=== PATIENT | female | born 1935 | race Caucasian/White ===

== ENCOUNTER 2021-02-27 17:23 | Inpatient (IN) ==
[2021-02-27] MEDS ORDERED: IOPAMIDOL 100 ML BOTTLE IV ONE (17:24)
--- NOTE | 2021-02-27 17:54 | XRay Report ---
HISTORY: Shortness of breath, cough pulmonary infiltrates and positive COVID test FINDINGS: There are ill-defined alveolar infiltrates in both lungs which have enlarged since 02/25/21. There is involvement in both upper lobes both lower lobes and around the left hilum. Lung volumes are normal. No pleural effusion is present. No adenopathy is detected. The heart size is normal and there is a pacemaker and right ventricle. IMPRESSION: Worsening bilateral pneumonia Interpreted and Authenticated by: David Iverson 02/27/21
--- NOTE | 2021-02-27 18:16 | EKG ---
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 Measurements Intervals [place] Rate: 70 P: MA: QRS: -63 QRSD: 130 T: 140 QT: 408 QTc: 441 Interpretive Statements Afib/flutter and ventricular-paced rhythm No further analysis attempted due to paced rhythm Since previous ECG of 02-25-2021, NSC Baseline wander in lead(s) V3 ABNORMAL ECG Electronically Signed On 02-27-2021 18:16:25 PDT by Cristian Bolton M.D. /[facility] [place]/M0/[id number]
[2021-02-27] MEDS ORDERED: ALBUTEROL SULFATE 200 PUFF INHALER INH ONE (18:25)
--- NOTE | 2021-02-27 18:30 | Emergency Department Note ---
Weakness HPI General Chief complaint: Weakness Stated complaint: SOB, cough, headache, weakness Time Seen by Provider: 02/27/21 17:28 Source: patient Mode of arrival: ambulatory Limitations: no limitations History of Present Illness HPI Narrative: Narrative: 85-year-old female with a reported history of emphysema, A. fib status post AICD on with known COVID-19 diagnosed on Thursday and symptoms since the end of January presenting to the ED with worsening symptoms overall since her diagnosis Thursday. At that time she was not hypoxic and was discharged home feeling a little bit better however since that time all of her symptoms have progressively worsened primarily just the generalized fatigue and weakness. Also has had no appetite and has had very little to eat or drink. Complains of shortness of breath, posttussive chest pain, subjective fevers, dry cough, watery diarrhea. Of note patient has been previously fully vaccinated with Moderna. No other complaints. Related Data Home Medications Medication Instructions Recorded Confirmed multivitamin 1 tab PO QAM 11/04/17 02/27/21 apixaban 5 mg tablet 5 mg PO BID 08/13/19 02/27/21 cholecalciferol (vitamin D3) 125 5,000 unit PO QDAY tab 08/13/19 02/27/21 mcg (5,000 unit) disintegrating tablet ferrous gluconate 300 mg (35 mg 300 mg PO QDAY 08/13/19 02/27/21 iron) tablet magnesium oxide 400 mg PO TID tab 08/13/19 02/27/21 acetaminophen 650 mg 1,300 mg PO BID tab 04/17/20 02/27/21 tablet,extended release ascorbate calcium (vitamin C) 500 500 mg PO QDAY tab 04/17/20 02/27/21 mg tablet lactobacillus combination no.8 3 3,000 mmu cells PO QDAY 04/17/20 01/24/21 billion cell capsule preservision PO BID 04/17/20 01/24/21 vitamin B complex 1 tab PO QDAY 04/17/20 02/28/21 zinc 50 mg tablet 50 mg PO .MWF tab 04/17/20 02/28/21 Previous Rx's Medication Instructions Recorded furosemide 20 mg tablet 20 mg PO QAM #90 tab 09/24/20 levothyroxine 137 mcg tablet 137 mcg PO QDAY #90 tab 09/24/20 metformin 500 mg tablet 500 mg PO QDAY #90 tab 09/24/20 metoprolol succinate 50 mg 50 mg PO QDAY #90 tab 09/24/20 tablet,extended release 24 hr potassium chloride 20 mEq See Rx Instructions .ROUTE 09/24/20 tablet,extended release .COMPLEX #90 tablet alprazolam 0.5 mg tablet 0.25 - 0.5 mg PO TID PRN #180 tab 11/26/20 omeprazole 40 mg capsule,delayed 40 mg PO QDAY #30 cap 01/10/21 release sucralfate 1 gram tablet 1 g PO QACHS #40 tab 01/10/21 albuterol sulfate 2 puff INHALATION Q6H PRN #8.5 g 02/25/21 codeine-guaifenesin [Coditussin AC] 5 ml PO Q6H PRN #473 ml 02/25/21 Allergies Allergy/AdvReac Type Severity Reaction Status Date / Time lansoprazole Allergy Unknown Unknown Verified 02/27/21 17:27 amiodarone AdvReac Intermediate vision Verified 02/27/21 17:27 changes, feet pain Review of Systems ROS ROS Narrative: Narrative: At least 10 systems reviewed and otherwise acutely negative except as in the HPI PFSH Narrative Patient History Narrative: Narrative: Medical/Surgical/Family History All Active Problems (Updated 02/28/21 @ 03:07 by Al Dong DO) Emphysema, unspecified (Chronic) Stress (Chronic) Crohns disease of small intestine (Chronic) Elevated blood sugar (Chronic) Unspecified cirrhosis of liver (Chronic) Hypomagnesemia (Chronic) Palpitations (Chronic) Hyperlipidemia (Chronic) Varicose veins of lower extremity (Chronic) Chest discomfort (Chronic) Flushing (Chronic) GERD (gastroesophageal reflux disease) (Chronic) Anemia (Chronic) Leukemia, lymphocytic, chronic (Chronic) Vitamin D deficiency (Chronic) Fatigue (Chronic) Rhinitis, allergic (Chronic) Insomnia (Chronic) Postmenopausal (Chronic) Hypertriglyceridemia (Chronic) Hypertension (Chronic) Wears glasses (Chronic) Hypothyroidism (Chronic) 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) Migraines (Chronic) Bronchiectasis (Chronic) Atrial fibrillation (Chronic) Atrial flutter (Chronic) Skin irritation (Chronic) Mixed hyperlipidemia (Chronic) Benign hypertensive heart disease (Chronic) Typical atrial flutter (Chronic) Anemia, iron deficiency (Chronic) Esophageal stricture (Chronic) DDD (degenerative disc disease), cervical (Chronic) Encounter for long-term (current) use of medications (Chronic) Occipital headache (Chronic) Family history of brain aneurysm (Chronic) Carotid bruit (Chronic) Anxiety (Chronic) Neck pain (Chronic) Headache (Chronic) COPD (chronic obstructive pulmonary disease) (Chronic) Back pain (Acute) Dyspnea (Acute) Other spondylosis with radiculopathy, lumbar region (Chronic) Chronic pain (Chronic) Radiculopathy, lumbar region (Chronic) Rosacea (Acute) Discoloration of skin of lower leg (Acute) Myofascial pain (Acute) Depression (Acute) COVID (Acute) Pneumonia (Acute) COVID-19 (Acute) Diarrhea (Acute) Medical History Anemia Anemia, iron deficiency Anxiety Benign hypertensive heart disease Bronchiectasis Carotid bruit Chest discomfort Chronic pain COPD (chronic obstructive pulmonary disease) Crohns disease of small intestine DDD (degenerative disc disease), cervical Degenerative joint disease involving multiple joints Depression Elevated blood sugar Emphysema, unspecified Encounter for long-term (current) use of medications Esophageal stricture Family history of brain aneurysm Fatigue Flushing GERD (gastroesophageal reflux disease) Headache Hyperlipidemia Hypertension Hypertriglyceridemia Hypomagnesemia Hypothyroidism Insomnia Leukemia, lymphocytic, chronic Migraines Mixed hyperlipidemia Neck pain Occipital headache Other spondylosis with radiculopathy, lumbar region Palpitations Postmenopausal Radiculopathy, lumbar region Rhinitis, allergic Skin irritation Stress Typical atrial flutter Unspecified cirrhosis of liver Varicose veins of lower extremity Vitamin D deficiency Wears glasses Surgical History History of appendectomy History of cholecystectomy History of colonoscopy (~2012) History of eye surgery (~05/2018) Dr Wong History of permanent cardiac pacemaker placement (~01/13/20) History of prior ablation treatment (~01/13/20) History of right knee surgery (~12/2008) History of sinus surgery (~2009) History of surgery TFE #1 Lt L4-5 w/sed 05/14/20 TF PATRICK #2 Lt. L4-5 w/sed 08/09/1907/12 TF PATRICK #1 Lt. L4-5 w/sed 07/19/2019 History of tonsillectomy History of total hysterectomy Hx of inguinal hernia surgery Dr Atkinson Family History Sister History of heart surgery Father , of cerebral hemmorrhage Cerebral hemorrhage Diabetes Mother HTN (hypertension) Social History Smoking Status: Former smoker Alcohol Intake Frequency: does not drink Substance Use: does not use Exam Narrative Narrative: Narrative: Constitutional: normally developed, ill-appearing Head: Normocephalic, atraumatic, Eyes: No Icterus, ENT: Moist mucus membranes, Neck: Supple, Cardiac: Normal heart sounds, palpable radial pulses, no peripheral edema Pulmonary: Normal respiratory effort. Breath sounds coarse but no obvious focal, wheeze, rhonchi, rales, Gastrointestinal: Abdomen soft, non-distended, non-tender, Musculoskeletal: No gross deformities, well perfused Skin: warm, dry Neuro: Alert and oriented. General Limitations: no limitations Course Vital Signs Vital signs: Vital Signs Pulse Rate 73 02/27/21 17:24 Respiratory Rate 22 02/27/21 17:24 Blood Pressure 141/62 02/27/21 17:24 Pulse Oximetry (%) 87 L 02/27/21 17:24 Temperature 36.7 C 02/27/21 22:11 Pulse Rate 80 02/27/21 23:31 Respiratory Rate 20 02/27/21 22:11 Blood Pressure 134/81 02/27/21 22:11 Pulse Oximetry (%) 93 02/27/21 22:37 [facility] MDM Narrative Medical decision making narrative: Narrative: Patient with known COVID-19 with overall worsening symptoms consistent with a overall worsening viral syndrome. Of note today however she is hypoxic on room air 87% with normal saturations on 2 L nasal cannula currently not in any respiratory distress. Likely will qualify for Decadron possibly remdesivir, we are awaiting diagnostic studies. did give her albuterol MDI. Patient is started on 6 mg IV Decadron Labs show unremarkable CBC, electrolytes unremarkable other than tracely elevated glucose D-dimer elevated 1.3 CT PE pending Troponin is negative CT PE is negative for PE does show findings consistent with COVID-19 infection no obvious focal bacterial pneumonia, also does show emphysema Twelve-lead EKG at 1747 per my interpretation shows atrial flutter appearance with a underlying ventricularly paced complexes heart rate 70 QTc within normal no acute ischemia noted Reevaluation presentation consistent with worsening COVID-19 now oxygen dependent, was started on dexamethasone, have spoken with hospitalist Dr. chairez who accepts admission at this time Lab Data Result diagrams: 02/27/21 17:54 02/27/21 17:54 Labs: Lab Results 02/27/21 02/27/21 02/27/21 Range/Units 17:54 17:54 17:54 WBC 7.3 (4.5-11.0) K/mcL RBC 4.50 (4.00-5.20) M/mcL Hgb 12.5 (12.0-15.0) g/dL Hct 39.5 (36.0-48.0) % MCV 87.8 (80.0-100.0) fL MCH 27.8 (26.0-34.0) pg MCHC 31.6 (31.0-36.0) g/dL RDW 14.4 (11.5-14.5) % Plt Count 155 (140-440) K/mcL MPV 9.7 (7.4-10.4) fL Neut % (Auto) 39.6 (38.0-78.0) % Lymph % (Auto) 53.8 H (15.0-49.0) % [place] % (Auto) 5.4 (1.0-12.0) % Eos % (Auto) 1.1 (0.0-7.0) % Baso % (Auto) 0.1 (0.0-2.0) % Lymph # (Auto) 3.90 (1.50-4.80) K/mcL [place] # (Auto) 0.39 (0.10-0.90) K/mcL Eos # (Auto) 0.08 (0.00-0.70) K/mcL Baso # (Auto) 0.01 (0.00-0.20) K/mcL Absolute Neutrophils 2.87 (1.80-8.00) K/mcL PT (11.9-14.5) sec INR (0.9-1.1) D-Dimer 1.30 H (0.27-0.50) ug/mL Sodium 135 (133-145) mmol/L Potassium 4.4 (3.3-5.1) mmol/L Chloride 99 (96-108) mmol/L Carbon Dioxide 23 (22-30) mmol/L Anion Gap 13.0 (8.0-16.0) BUN 20 (8-23) mg/dL Creatinine 0.9 (0.6-1.1) mg/dL GFR Calculation 59 Glucose 117 H (70-105) mg/dL Hemoglobin A1c (4.0-6.0) % Hgb Estim Average Glucose mg/dL Calcium 8.7 (8.6-10.4) mg/dL Ferritin (30.0-400.0) ng/mL Total Bilirubin 0.7 (0.1-1.0) mg/dL AST 42 H (<32) U/L ALT 21 (<40) U/L Alkaline Phosphatase 76 (39-117) U/L Total Creatine Kinase (24-170) U/L Troponin T (<0.03) ng/mL C-Reactive Protein (0.03-0.80) mg/dL Total Protein 6.3 (5.9-8.4) gm/dL Albumin 4.0 (3.2-5.2) gm/dL Globulin 2.3 (2.2-3.7) gm/dL Albumin/Globulin Ratio 1.7 (1.0-2.3) Procalcitonin (<0.10) ng/mL 02/27/21 02/27/21 02/27/21 Range/Units 17:54 17:54 17:54 WBC (4.5-11.0) K/mcL RBC (4.00-5.20) M/mcL Hgb (12.0-15.0) g/dL Hct (36.0-48.0) % MCV (80.0-100.0) fL MCH (26.0-34.0) pg MCHC (31.0-36.0) g/dL RDW (11.5-14.5) % Plt Count (140-440) K/mcL MPV (7.4-10.4) fL Neut % (Auto) (38.0-78.0) % Lymph % (Auto) (15.0-49.0) % [place] % (Auto) (1.0-12.0) % Eos % (Auto) (0.0-7.0) % Baso % (Auto) (0.0-2.0) % Lymph # (Auto) (1.50-4.80) K/mcL [place] # (Auto) (0.10-0.90) K/mcL Eos # (Auto) (0.00-0.70) K/mcL Baso # (Auto) (0.00-0.20) K/mcL Absolute Neutrophils (1.80-8.00) K/mcL PT 14.6 H (11.9-14.5) sec INR 1.1 (0.9-1.1) D-Dimer (0.27-0.50) ug/mL Sodium (133-145) mmol/L Potassium (3.3-5.1) mmol/L Chloride (96-108) mmol/L Carbon Dioxide (22-30) mmol/L Anion Gap (8.0-16.0) BUN (8-23) mg/dL Creatinine (0.6-1.1) mg/dL GFR Calculation Glucose (70-105) mg/dL Hemoglobin A1c (4.0-6.0) % Hgb Estim Average Glucose mg/dL Calcium (8.6-10.4) mg/dL Ferritin 289.1 (30.0-400.0) ng/mL Total Bilirubin (0.1-1.0) mg/dL AST (<32) U/L ALT (<40) U/L Alkaline Phosphatase (39-117) U/L Total Creatine Kinase 56 (24-170) U/L Troponin T < 0.01 (<0.03) ng/mL C-Reactive Protein 4.20 H (0.03-0.80) mg/dL Total Protein (5.9-8.4) gm/dL Albumin (3.2-5.2) gm/dL Globulin (2.2-3.7) gm/dL Albumin/Globulin Ratio (1.0-2.3) Procalcitonin (<0.10) ng/mL 02/27/21 02/27/21 Range/Units 17:54 17:54 WBC (4.5-11.0) K/mcL RBC (4.00-5.20) M/mcL Hgb (12.0-15.0) g/dL Hct (36.0-48.0) % MCV (80.0-100.0) fL MCH (26.0-34.0) pg MCHC (31.0-36.0) g/dL RDW (11.5-14.5) % Plt Count (140-440) K/mcL MPV (7.4-10.4) fL Neut % (Auto) (38.0-78.0) % Lymph % (Auto) (15.0-49.0) % [place] % (Auto) (1.0-12.0) % Eos % (Auto) (0.0-7.0) % Baso % (Auto) (0.0-2.0) % Lymph # (Auto) (1.50-4.80) K/mcL [place] # (Auto) (0.10-0.90) K/mcL Eos # (Auto) (0.00-0.70) K/mcL Baso # (Auto) (0.00-0.20) K/mcL Absolute Neutrophils (1.80-8.00) K/mcL PT (11.9-14.5) sec INR (0.9-1.1) D-Dimer (0.27-0.50) ug/mL Sodium (133-145) mmol/L Potassium (3.3-5.1) mmol/L Chloride (96-108) mmol/L Carbon Dioxide (22-30) mmol/L Anion Gap (8.0-16.0) BUN (8-23) mg/dL Creatinine (0.6-1.1) mg/dL GFR Calculation Glucose (70-105) mg/dL Hemoglobin A1c 6.2 H (4.0-6.0) % Hgb Estim Average Glucose 131 mg/dL Calcium (8.6-10.4) mg/dL Ferritin (30.0-400.0) ng/mL Total Bilirubin (0.1-1.0) mg/dL AST (<32) U/L ALT (<40) U/L Alkaline Phosphatase (39-117) U/L Total Creatine Kinase (24-170) U/L Troponin T (<0.03) ng/mL C-Reactive Protein (0.03-0.80) mg/dL Total Protein (5.9-8.4) gm/dL Albumin (3.2-5.2) gm/dL Globulin (2.2-3.7) gm/dL Albumin/Globulin Ratio (1.0-2.3) Procalcitonin 0.10 H (<0.10) ng/mL Discharge Plan Patient/Caregiver Discharge Instructions Pt seen by COMPRESSOR OPERATOR/PA only: No Clinical Impression: COVID-19 Emphysema, unspecified Qualifiers: Emphysema type: centrilobular Qualified Code(s): J43.2 - Centrilobular emphysema Patient Disposition: Xfer As Inpt ([facility]) Condition: Fair Discharge Date/Time: 02/27/21 22:10
[2021-02-27 18:36] LABS: Basophils # (Auto) 0.01 K/mcL (0.00-0.20); Basophils % (Auto) 0.1 % (0.0-2.0); Eosinophils # (Auto) 0.08 K/mcL (0.00-0.70); Eosinophils % (Auto) 1.1 % (0.0-7.0); Hematocrit 39.5 % (36.0-48.0); Hemoglobin 12.5 g/dL (12.0-15.0); Lymphocytes % (Auto) 53.8 % (15.0-49.0); Mean Cell Volume 87.8 fL (80.0-100.0); Mean Corpuscular HGB Conc 31.6 g/dL (31.0-36.0); Mean Platelet Volume 9.7 fL (7.4-10.4); Monocytes # (Auto) 0.39 K/mcL (0.10-0.90); Monocytes % (Auto) 5.4 % (1.0-12.0); Neutrophils % (Auto) 39.6 % (38.0-78.0); Platelet Count 155 K/mcL (140-440); Red Cell Distribution Width 14.4 % (11.5-14.5); WBC 7.3 K/mcL (4.5-11.0)
[2021-02-27 19:00] LABS: ALT/SGPT 21 U/L (<40); AST/SGOT 42 U/L (<32); Albumin/Globulin Ratio 1.7 (1.0-2.3); Alkaline Phosphatase 76 U/L (39-117); Bilirubin,Total 0.7 mg/dL (0.1-1.0); Blood Urea Nitrogen 20 mg/dL (8-23); Calcium 8.7 mg/dL (8.6-10.4); Carbon Dioxide 23 mmol/L (22-30); Chloride 99 mmol/L (96-108); Globulin 2.3 gm/dL (2.2-3.7); Glomerular Filtration Rate 59; Glucose 117 mg/dL (70-105)
[2021-02-27] MEDS ORDERED: DEXAMETHASONE 10 MG/ML VIAL IV ONE (19:37)
--- NOTE | 2021-02-27 21:05 | Internal Med History&Physical ---
HPI History of Present Illness Patient information: Note initiated : 02/27/21 at 8:58 pm Service Date, if different from initiated Date: [] Patient: Vianca Lancaster a 85 y/o F admitted on for SOB, cough, headache, weakness. Chief Complaint: [] History of present illness: Ms. Lancaster is a 85 year old F The ED with shortness of breath cough. Has chills but denies fever. She says she has not been feeling ill since the very end of January. She came into the ED several days ago and was diagnosed with Covid but was otherwise doing well and was let go home, she says she felt better the next morning but then the evening she started feeling worse again and presents again today. Cough is productive of brown sputum. She does have some pleuritic chest pain as well. She has diarrhea which she has on occasion normally. She did get the modern vaccine in October. Review of Systems: Pertinent positives as above. Denies headache/fever/nausea/vomiting/abdominal pain/. Remaining 10 point review of system reviewed negative. PFSH PFSH All Active Problems (Updated 02/25/21 @ 12:56 by Edmundo Orosco MD) Emphysema, unspecified (Chronic) Stress (Chronic) Crohns disease of small intestine (Chronic) Elevated blood sugar (Chronic) Unspecified cirrhosis of liver (Chronic) Hypomagnesemia (Chronic) Palpitations (Chronic) Hyperlipidemia (Chronic) Varicose veins of lower extremity (Chronic) Chest discomfort (Chronic) Flushing (Chronic) GERD (gastroesophageal reflux disease) (Chronic) Anemia (Chronic) Leukemia, lymphocytic, chronic (Chronic) Vitamin D deficiency (Chronic) Fatigue (Chronic) Rhinitis, allergic (Chronic) Insomnia (Chronic) Postmenopausal (Chronic) Hypertriglyceridemia (Chronic) Hypertension (Chronic) Wears glasses (Chronic) Hypothyroidism (Chronic) 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) Migraines (Chronic) Bronchiectasis (Chronic) Atrial fibrillation (Chronic) Atrial flutter (Chronic) Skin irritation (Chronic) Mixed hyperlipidemia (Chronic) Benign hypertensive heart disease (Chronic) Typical atrial flutter (Chronic) Anemia, iron deficiency (Chronic) Esophageal stricture (Chronic) DDD (degenerative disc disease), cervical (Chronic) Encounter for long-term (current) use of medications (Chronic) Occipital headache (Chronic) Family history of brain aneurysm (Chronic) Carotid bruit (Chronic) Anxiety (Chronic) Neck pain (Chronic) Headache (Chronic) COPD (chronic obstructive pulmonary disease) (Chronic) Back pain (Acute) Dyspnea (Acute) Other spondylosis with radiculopathy, lumbar region (Chronic) Chronic pain (Chronic) Radiculopathy, lumbar region (Chronic) Rosacea (Acute) Discoloration of skin of lower leg (Acute) Myofascial pain (Acute) Depression (Acute) COVID (Acute) Pneumonia (Acute) Diarrhea (Acute) Medical History Anemia Anemia, iron deficiency Anxiety Benign hypertensive heart disease Bronchiectasis Carotid bruit Chest discomfort Chronic pain COPD (chronic obstructive pulmonary disease) Crohns disease of small intestine DDD (degenerative disc disease), cervical Degenerative joint disease involving multiple joints Depression Elevated blood sugar Emphysema, unspecified Encounter for long-term (current) use of medications Esophageal stricture Family history of brain aneurysm Fatigue Flushing GERD (gastroesophageal reflux disease) Headache Hyperlipidemia Hypertension Hypertriglyceridemia Hypomagnesemia Hypothyroidism Insomnia Leukemia, lymphocytic, chronic Migraines Mixed hyperlipidemia Neck pain Occipital headache Other spondylosis with radiculopathy, lumbar region Palpitations Postmenopausal Radiculopathy, lumbar region Rhinitis, allergic Skin irritation Stress Typical atrial flutter Unspecified cirrhosis of liver Varicose veins of lower extremity Vitamin D deficiency Wears glasses Surgical History History of appendectomy History of cholecystectomy History of colonoscopy (~2012) History of eye surgery (~05/2018) Dr Wong History of permanent cardiac pacemaker placement (~01/13/20) History of prior ablation treatment (~01/13/20) History of right knee surgery (~12/2008) History of sinus surgery (~2009) History of surgery TFE #1 Lt L4-5 w/sed 05/14/20 TF PATRICK #2 Lt. L4-5 w/sed 08/09/1907/12 TF PATRICK #1 Lt. 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 other: Has grown children physical activity: none alcohol intake frequency: does not drink substance use type: does not use seatbelt use: always MEDS/ALLERGIES Home Medications and Allergies Home Medications Medication Instructions Recorded Confirmed Type multivitamin 1 tab PO QAM 11/04/17 02/27/21 History apixaban 5 mg tablet 5 mg PO BID 08/13/19 02/27/21 History cholecalciferol (vitamin D3) 125 5,000 unit PO QDAY tab 08/13/19 02/27/21 History mcg (5,000 unit) disintegrating tablet ferrous gluconate 300 mg (35 mg 300 mg PO QDAY 08/13/19 02/27/21 History iron) tablet magnesium oxide 400 mg PO TID tab 08/13/19 02/27/21 History acetaminophen 650 mg 1,300 mg PO BID tab 04/17/20 02/27/21 History tablet,extended release ascorbate calcium (vitamin C) 500 500 mg PO QDAY tab 04/17/20 02/27/21 History mg tablet lactobacillus combination no.8 3 3,000 mmu cells PO QDAY 04/17/20 01/24/21 History billion cell capsule preservision PO BID 04/17/20 01/24/21 History vitamin B complex 1 tab PO QDAY 04/17/20 02/27/21 History zinc 50 mg tablet 50 mg PO .MWF tab 04/17/20 02/27/21 History furosemide 20 mg tablet 20 mg PO QAM #90 tab 09/24/20 02/27/21 Rx levothyroxine 137 mcg tablet 137 mcg PO QDAY #90 tab 09/24/20 02/27/21 Rx metformin 500 mg tablet 500 mg PO QDAY #90 tab 09/24/20 02/27/21 Rx metoprolol succinate 50 mg 50 mg PO QDAY #90 tab 09/24/20 02/27/21 Rx tablet,extended release 24 hr potassium chloride 20 mEq See Rx Instructions .ROUTE 09/24/20 02/27/21 Rx tablet,extended release .COMPLEX #90 tablet alprazolam 0.5 mg tablet 0.25 - 0.5 mg PO TID PRN #180 tab 11/26/20 02/27/21 Rx omeprazole 40 mg capsule,delayed 40 mg PO QDAY #30 cap 01/10/21 02/27/21 Rx release sucralfate 1 gram tablet 1 g PO QACHS #40 tab 01/10/21 01/24/21 Rx albuterol sulfate 2 puff INHALATION Q6H PRN #8.5 g 02/25/21 02/27/21 Rx codeine-guaifenesin [Coditussin AC] 5 ml PO Q6H PRN #473 ml 02/25/21 02/27/21 Rx Allergies Allergy/AdvReac Type Severity Reaction Status Date / Time lansoprazole Allergy Unknown Unknown Verified 02/27/21 17:27 amiodarone AdvReac Intermediate vision Verified 02/27/21 17:27 changes, feet pain EXAM Constitutional Vitals: Temp Pulse Resp BP Pulse Ox 99 F 70 18 123/66 96 02/27/21 19:26 02/27/21 18:31 02/27/21 18:31 02/27/21 18:31 02/27/21 18:31 Exam: General: Alert, Awake, No acute Distress Eyes/N/T: EOMI, PERRL, Head/Neck: neck supple, normocephalic atraumatic CV: RRR paced, No murmurs, normal s1/s2 Pulm: Mild rhonchi b/l, no wheezing Abd: soft, nontender, +BS x4 Ext: no clubbing/cyanosis/edema Neuro: Alert, no focal deficits, moves all extremities, CN 2-12 grossly intact, symmetrical strength b/l upper/lower, sensations intact b/l upper/lower Skin: warm/dry DATA Data Completed and Pending Labs: Labs from last 24 hours 02/27/21 02/27/21 02/27/21 17:54 17:54 17:54 WBC RBC Hgb Hct MCV MCH MCHC RDW Plt Count MPV Neut % (Auto) Lymph % (Auto) Davie % (Auto) Eos % (Auto) Baso % (Auto) Lymph # (Auto) Davie # (Auto) Eos # (Auto) Baso # (Auto) Absolute Neutrophils PT Pending INR Pending D-Dimer Sodium Potassium Chloride Carbon Dioxide Anion Gap BUN Creatinine GFR Calculation Glucose Calcium Ferritin Pending Total Bilirubin AST ALT Alkaline Phosphatase Total Creatine Kinase Pending Troponin T C-Reactive Protein Pending Total Protein Albumin Globulin Albumin/Globulin Ratio Procalcitonin Pending 02/27/21 02/27/21 02/27/21 17:54 17:54 17:54 WBC RBC Hgb Hct MCV MCH MCHC RDW Plt Count MPV Neut % (Auto) Lymph % (Auto) Davie % (Auto) Eos % (Auto) Baso % (Auto) Lymph # (Auto) Davie # (Auto) Eos # (Auto) Baso # (Auto) Absolute Neutrophils PT INR D-Dimer 1.30 H Sodium 135 Potassium 4.4 Chloride 99 Carbon Dioxide 23 Anion Gap 13.0 BUN 20 Creatinine 0.9 GFR Calculation 59 Glucose 117 H Calcium 8.7 Ferritin Total Bilirubin 0.7 AST 42 H ALT 21 Alkaline Phosphatase 76 Total Creatine Kinase Troponin T < 0.01 C-Reactive Protein Total Protein 6.3 Albumin 4.0 Globulin 2.3 Albumin/Globulin Ratio 1.7 Procalcitonin 02/27/21 17:54 WBC 7.3 RBC 4.50 Hgb 12.5 Hct 39.5 MCV 87.8 MCH 27.8 MCHC 31.6 RDW 14.4 Plt Count 155 MPV 9.7 Neut % (Auto) 39.6 Lymph % (Auto) 53.8 H Davie % (Auto) 5.4 Eos % (Auto) 1.1 Baso % (Auto) 0.1 Lymph # (Auto) 3.90 Davie # (Auto) 0.39 Eos # (Auto) 0.08 Baso # (Auto) 0.01 Absolute Neutrophils 2.87 PT INR D-Dimer Sodium Potassium Chloride Carbon Dioxide Anion Gap BUN Creatinine GFR Calculation Glucose Calcium Ferritin Total Bilirubin AST ALT Alkaline Phosphatase Total Creatine Kinase Troponin T C-Reactive Protein Total Protein Albumin Globulin Albumin/Globulin Ratio Procalcitonin A/P Narrative A/P Narrative: A: *Covid PNA: *Acute hypoxic respiratory failure: *COPD(not on home O2): *Afib/flutter: On Eliquis/BB *HTN/HLD: *Hypothyroidism: *Depression/anxiety: *GERD: *?DM: * P: -Rem/Dexa -IS/Acapella, prn nebs -Prone positioning -check pct -check laboratory markers - -ppx: Home Eliquis/home PPI Full code Time Spent With Patient Time: Total time spent is greater than 50% in coordination of care (as documented) at patient's floor/unit and/or counseling patient:
[2021-02-27 21:15] LABS: Creatine Kinase 56 U/L (24-170)
[2021-02-27 21:17] LABS: INR 1.1 (0.9-1.1); Prothrombin Time 14.6 sec (11.9-14.5)
[2021-02-27 21:28] LABS: Ferritin 289.1 ng/mL (30.0-400.0)
[2021-02-27] MEDS ORDERED: POTASSIUM CHLORIDE 20 MEQ TABLET PO PRN ×2 (22:02)
[2021-02-27] MEDS ORDERED: METOPROLOL TARTRATE 5 MG/5 ML VIAL IV PRN (22:02)
[2021-02-27] MEDS ORDERED: SENNOSIDES 1 TABLET PO PRN (22:02)
[2021-02-27] MEDS ORDERED: METOCLOPRAMIDE 10 MG/2 ML VIAL IV PRN (22:02)
[2021-02-27] MEDS ORDERED: IPRATROPIUM/ALBUTEROL 3 ML AMPUL.NEB NEB PRN (22:02)
[2021-02-27] MEDS ORDERED: REMDESIVIR 100 MG in 0.9 % SODIUM CHLORIDE 250 ML IV SCH (22:02)
[2021-02-27] MEDS ORDERED: ONDANSETRON 4 MG/2 ML VIAL IV PRN (22:02)
[2021-02-27] MEDS ORDERED: MAGNESIUM SULFATE 2 GM/50 ML BAG IV PRN (22:02)
[2021-02-27] MEDS ORDERED: POLYETHYLENE GLYCOL 3350 17 GM PACKET PO PRN (22:02)
[2021-02-27] MEDS ORDERED: REMDESIVIR 200 MG in 0.9 % SODIUM CHLORIDE 250 ML IV ONE (22:02)
[2021-02-27] MEDS ORDERED: POTASSIUM CHLORIDE 40 MEQ in DEXTROSE 5% IN WATER 500 ML IV PRN (22:02)
[2021-02-27] MEDS ORDERED: ACETAMINOPHEN 325 MG TABLET PO PRN (22:02)
[2021-02-27] MEDS ORDERED: APIXABAN 5 MG TABLET PO ONE (22:33)
[2021-02-27] MEDS: APIXABAN 5 MG TABLET PO SCH (22:39)
[2021-02-27] MEDS: 0.9 % SODIUM CHLORIDE 10 ML SYRINGE IV SCH (22:39)
[2021-02-28] LABS: Hemoglobin A1C 6.2 % Hgb (4.0-6.0)
[2021-02-28] MEDS ORDERED: guaiFENesin/CODEINE 10 ML UDC PO PRN (06:00)
[2021-02-28 06:34] LABS: Basophils # (Auto) 0.01 K/mcL (0.00-0.20); Basophils % (Auto) 0.2 % (0.0-2.0); Eosinophils # (Auto) 0.01 K/mcL (0.00-0.70); Eosinophils % (Auto) 0.2 % (0.0-7.0); Hematocrit 38.7 % (36.0-48.0); Hemoglobin 11.9 g/dL (12.0-15.0); Lymphocytes # (Auto) 4.32 K/mcL (1.50-4.80); Mean Cell Volume 89.2 fL (80.0-100.0); Mean Corpuscular HGB Conc 30.7 g/dL (31.0-36.0); Mean Platelet Volume 9.8 fL (7.4-10.4); Monocytes # (Auto) 0.22 K/mcL (0.10-0.90); Monocytes % (Auto) 3.7 % (1.0-12.0); Neutrophils % (Auto) 23.5 % (38.0-78.0); Platelet Count 142 K/mcL (140-440); RBC 4.34 M/mcL (4.00-5.20); Red Cell Distribution Width 14.1 % (11.5-14.5)
[2021-02-28 07:03] LABS: ALT/SGPT 19 U/L (<40); AST/SGOT 35 U/L (<32); Albumin 3.7 gm/dL (3.2-5.2); Albumin/Globulin Ratio 1.8 (1.0-2.3); Alkaline Phosphatase 69 U/L (39-117); Bilirubin,Direct 0.2 mg/dL (<0.3); Bilirubin,Total 0.5 mg/dL (0.1-1.0); Blood Urea Nitrogen 16 mg/dL (8-23); Calcium 8.6 mg/dL (8.6-10.4); Carbon Dioxide 22 mmol/L (22-30); Chloride 100 mmol/L (96-108); Globulin 2.1 gm/dL (2.2-3.7); Glomerular Filtration Rate 59; Glucose 165 mg/dL (70-105); Lactate Dehydrogenase 234 U/L (135-225); Phosphorous 2.8 mg/dL (2.5-4.5); Triglycerides 243 mg/dL (<150); Uric Acid 5.5 mg/dL (2.5-8.0)
--- NOTE | 2021-02-28 07:15 | Internal Med Progress Note ---
SUBJECTIVE Subjective Patient information: Note initiated : 02/28/21 at 7:12 am Service Date, if different from initiated Date: [] Patient: Vianca Lancaster a 85 y/o F admitted on 02/27/21 for SOB, cough, headache, weakness. Chief Complaint: [] Interval history: History of present illness: Ms. Lancaster is a 85 year old F The ED with shortness of breath cough. Has chills but denies fever. She says she has not been feeling ill since the very end of January. She came into the ED several days ago and was diagnosed with Covid but was otherwise doing well and was let go home, she says she felt better the next morning but then the evening she started feeling worse again and presents again today. Cough is productive of brown sputum. She does have some pleuritic chest pain as well. She has diarrhea which she has on occasion normally. She did get the modern vaccine in October. 02/28 Feeling little better. Occasional cough shortness of breath improving. No other complaints. Review of Systems: denies headache/fever/chills/nausea/vomiting/chest or abdominal pain/diarrhea. Otherwise see above. Constitutional Vitals: Vital Signs Temp Pulse Resp BP Pulse Ox 97.2 F 71 20 110/66 91 02/28/21 04:18 02/28/21 04:18 02/28/21 04:18 02/28/21 04:18 02/28/21 04:18 Period Temp Pulse Resp BP Sys/Garcia Pulse Ox Last 24 Hr 97.2 F-99.2 F 24-80 18-22 110-141/62-81 87-96 Intake and Output 02/27/21 02/28/21 02/28/21 21:59 05:59 13:59 Intake Total 590 Output Total 1 Balance 589 Weight 72.121 kg 71.849 kg Intake & Output: Intake & Output 02/27/21 02/28/21 02/28/21 21:59 05:59 13:59 Intake Total 590 Output Total 1 Balance 589 Weight 72.121 kg 71.849 kg Intake: IV 250 Veklury 200 mg In Sodium 250 Chloride 0.9% 250 ml @ 500 mls/ hr IV ONCE ONE Rx#:[id number] Oral 340 Output: # of times incontinent of urine 1 Other: # Voids 1 Exam: General: Alert, Awake, No acute Distress Eyes/N/T: EOMI, Head/Neck: neck supple, CV: RRR paced, No murmurs, Pulm: Mild rhonchi b/l, no wheezing Abd: soft, nontender, +BS x4 Ext: no clubbing/cyanosis/edema Neuro: Alert, no focal deficits, moves all extremities, Skin: warm/dry OBJ DATA Labs CBC & Chem 7: 02/28/21 05:45 02/28/21 05:45 Labs: Abnormal Lab Results 02/28/21 02/28/21 02/27/21 05:45 05:45 17:54 Hgb 11.9 L MCHC 30.7 L Neut % (Auto) 23.5 L Lymph % (Auto) 72.4 H Absolute Neutrophils 1.41 L PT D-Dimer Glucose 165 H Hemoglobin A1c 6.2 H AST 35 H Lactate Dehydrogenase 234 H C-Reactive Protein Total Protein 5.8 L Globulin 2.1 L Triglycerides 243 H Procalcitonin 02/27/21 02/27/21 02/27/21 17:54 17:54 17:54 Hgb MCHC Neut % (Auto) Lymph % (Auto) Absolute Neutrophils PT 14.6 H D-Dimer Glucose Hemoglobin A1c AST Lactate Dehydrogenase C-Reactive Protein 4.20 H Total Protein Globulin Triglycerides Procalcitonin 0.10 H 02/27/21 02/27/21 02/27/21 17:54 17:54 17:54 Hgb MCHC Neut % (Auto) Lymph % (Auto) 53.8 H Absolute Neutrophils PT D-Dimer 1.30 H Glucose 117 H Hemoglobin A1c AST 42 H Lactate Dehydrogenase C-Reactive Protein Total Protein Globulin Triglycerides Procalcitonin Meds: Medications Acetaminophen (Acetaminophen 325 Mg Tablet) 650 mg PO Q6HP PRN PRN Reason: PAIN/FEVER > 101 Albuterol/Ipratropium (Ipratropium/Albuterol 3 Ml Ampul.Neb) 3 ml NEB Q4HP PRN PRN Reason: Shortness Of Breath Alprazolam (Alprazolam 0.5 Mg Tablet) 0.25 - 0.5 mg PO TIDP PRN PRN Reason: anxiety Apixaban (Apixaban 5 Mg Tablet) 5 mg PO BID ASIF Last Admin: 02/27/21 22:39 Dose: 5 mg Documented by: Dexamethasone (Dexamethasone 4 Mg Tablet) 6 mg PO DAILY [facility] Furosemide (Furosemide 20 Mg Tablet) 20 mg PO QAM [facility] Guaifenesin/Codeine Phosphate (Guaifenesin/Codeine 10 Ml Udc) 5 ml PO Q6HP PRN PRN Reason: Cough Potassium Chloride 40 meq/ (Dextrose) 520 mls @ 130 mls/hr IV UD PRN PRN Reason: Potassium < 3 Magnesium Sulfate (Magnesium Sulfate) 2 gm in 50 mls @ 50 mls/hr IV UD PRN PRN Reason: Magnesium </= 1.6 REMDESIVIR 100 mg/ Sodium (Chloride) 250 mls @ 500 mls/hr IV Q24H [facility] Stop: 03/03/21 16:29 Levothyroxine Sodium (Levothyroxine Sodium 112 Mcg Tablet) 112 mcg PO QAMAC [facility] Levothyroxine Sodium (Levothyroxine 25 Mcg Tablet) 25 mcg PO QAMAC [facility] Metformin HCl (Metformin 500 Mg Tablet) 500 mg PO QAMCC [facility] Metoclopramide HCl (Metoclopramide 10 Mg/2 Ml Vial) 10 mg IV Q6HP PRN PRN Reason: Nausea And Vomiting Metoprolol Succinate (Metoprolol Succinate 50 Mg Tab.Xl.24h) 50 mg PO QDAY [facility] Metoprolol Tartrate (Metoprolol Tartrate 5 Mg/5 Ml Vial) 5 mg IV Q2HP PRN PRN Reason: Tachyarrhythmias HR>110 Omeprazole (Omeprazole 20 Mg Capsule) 40 mg PO ACB [facility] Ondansetron HCl (Ondansetron 4 Mg/2 Ml Vial) 4 mg IV Q4HP PRN PRN Reason: Nausea And Vomiting Polyethylene Glycol (Polyethylene Glycol 3350 17 Gm Packet) 17 gm PO DAILYP PRN PRN Reason: Constipation Potassium Chloride (Potassium Chloride 20 Meq Tablet) 40 meq PO UD PRN PRN Reason: Potssium is 3-3.5 Potassium Chloride (Potassium Chloride 20 Meq Tablet) 40 meq PO UD PRN PRN Reason: Potassium < 3 Senna (Sennosides 1 Tablet) 2 tab PO DAILYP PRN PRN Reason: Constipation Sodium Chloride (0.9 % Sodium Chloride 10 Ml Syringe) 10 ml IV Q8 [facility] Last Admin: 02/27/21 22:39 Dose: 10 ml Documented by: Zinc Sulfate (Zinc Sulfate 50 Mg Capsule) 50 mg PO MoWeFr@0900 ASIF A/P Narrative A/P Narrative: A: *Covid PNA: *Acute hypoxic respiratory failure: -on 2-3L NC *COPD(not on home O2): *Afib/flutter: On Eliquis/BB *HTN/HLD: *Hypothyroidism: *Depression/anxiety: *GERD: *DM: A1c 6.2 * P: -Rem/Dexa -IS/Acapella, prn nebs -O2 supp, wean -Prone positioning -cont metformin -ppx: Home Eliquis/home PPI Full code Time Spent With Patient Time: Total time spent is greater than 50% in coordination of care (as documented) at patient's floor/unit and/or counseling patient: QUALITY VTE Deep Vein Thrombosis/Pulmonary Embolism Present on Admission: No
--- NOTE | 2021-02-28 07:42 | Cat Scan Report ---
History: Elevated serum d-dimer level, positive test for COVID TECHNIQUE: Following injection of intravenous nonionic contrast the chest was imaged during the pulmonary arterial phase from the thoracic inlet through the diaphragm. Sagittal, coronal and axial MIPS images were created. The radiation exposure was limited using dose reduction technology. FINDINGS: The pulmonary arteries are normal without evidence of pulmonary emboli. The aorta is normal caliber. There are scattered plaques along the wall of the aorta as well as scattered plaques in the coronary arteries. The heart size is normal. Patient has mild to moderate emphysema involving predominantly the upper lobes. Greatest involvement is in the right upper lobe. There is some pulmonary fibrosis surrounding the bulla in the right upper lobe. Superimposed upon the COPD the patient has a patchy distal position of groundglass alveolar infiltrates in both lungs. The infiltrates predominantly involving the periphery of lungs, within the mid and lower lung love. No lobar consolidation is present. There is no lung mass. A small layering right-sided pleural effusion is present. There are several small lymph nodes in the mediastinum and tapan which are all less than 1 cm in size. Degenerative changes are present at multiple levels in the cervical and thoracic spine. IMPRESSION: No evidence pulmonary emboli Bilateral pneumonia. The pattern is consistent with Covid infection. Emphysema. Atherosclerotic coronary artery disease Interpreted and Authenticated by: David Iverson 02/28/21
[2021-02-28] MEDS: 0.9 % SODIUM CHLORIDE 10 ML SYRINGE IV SCH ×3 (08:18→21:49)
[2021-02-28] MEDS: OMEPRAZOLE 20 MG CAPSULE PO SCH (08:19)
[2021-02-28] MEDS: DEXAMETHASONE 4 MG TABLET PO SCH (08:19)
[2021-02-28] MEDS: LEVOTHYROXINE 25 MCG TABLET PO SCH (08:19)
[2021-02-28] MEDS: LEVOTHYROXINE SODIUM 112 MCG TABLET PO SCH (08:22)
[2021-02-28] MEDS: APIXABAN 5 MG TABLET PO SCH ×2 (08:22→21:47)
[2021-02-28] MEDS: METOPROLOL SUCCINATE 50 MG TAB.XL.24H PO SCH (08:22)
[2021-02-28] MEDS: metFORMIN 500 MG TABLET PO SCH (08:22)
[2021-02-28] MEDS: FUROSEMIDE 20 MG TABLET PO SCH (08:23)
[2021-02-28 08:32] LABS: Lymphocytes % (Auto) 72.4 % (15.0-49.0)
[2021-02-28] MEDS ORDERED: NON FORMULARY MEDICATION 1 DOSE MISCELL (Levothyroxine 137 mcg tablet) PO SCH (09:00)
[2021-02-28] MEDS: REMDESIVIR 100 MG in 0.9 % SODIUM CHLORIDE 250 ML IV SCH (16:09)
[2021-02-28] MEDS: ALPRAZolam 0.5 MG TABLET PO PRN ×2 (18:55→21:48)
[2021-03-01] MEDS: 0.9 % SODIUM CHLORIDE 10 ML SYRINGE IV SCH ×3 (04:09→20:27)
[2021-03-01] MEDS: LEVOTHYROXINE 25 MCG TABLET PO SCH (06:54)
[2021-03-01] MEDS: LEVOTHYROXINE SODIUM 112 MCG TABLET PO SCH (06:54)
[2021-03-01] MEDS: OMEPRAZOLE 20 MG CAPSULE PO SCH (06:54)
[2021-03-01 07:05] LABS: ALT/SGPT 18 U/L (<40); AST/SGOT 31 U/L (<32); Albumin 3.5 gm/dL (3.2-5.2); Albumin/Globulin Ratio 1.7 (1.0-2.3); Alkaline Phosphatase 69 U/L (39-117); Bilirubin,Direct 0.2 mg/dL (<0.3); Bilirubin,Total 0.5 mg/dL (0.1-1.0); Blood Urea Nitrogen 24 mg/dL (8-23); Calcium 8.5 mg/dL (8.6-10.4); Carbon Dioxide 23 mmol/L (22-30); Chloride 101 mmol/L (96-108); Globulin 2.1 gm/dL (2.2-3.7); Glomerular Filtration Rate 68; Glucose 114 mg/dL (70-105); Lactate Dehydrogenase 235 U/L (135-225); Phosphorous 2.5 mg/dL (2.5-4.5); Triglycerides 248 mg/dL (<150); Uric Acid 5.7 mg/dL (2.5-8.0)
--- NOTE | 2021-03-01 07:19 | Internal Med Progress Note ---
SUBJECTIVE Subjective Patient information: Note initiated : 03/01/21 at 7:17 am Service Date, if different from initiated Date: [] Patient: Vianca Lancaster a 85 y/o F admitted on 02/27/21 for SOB, cough, headache, weakness. Chief Complaint: [] Interval history: History of present illness: Ms. Lancaster is a 85 year old F The ED with shortness of breath cough. Has chills but denies fever. She says she has not been feeling ill since the very end of January. She came into the ED several days ago and was diagnosed with Covid but was otherwise doing well and was let go home, she says she felt better the next morning but then the evening she started feeling worse again and presents again today. Cough is productive of brown sputum. She does have some pleuritic chest pain as well. She has diarrhea which she has on occasion normally. She did get the modern vaccine in October. 02/28 Feeling little better. Occasional cough shortness of breath improving. No other complaints. 03/01 No overnight or new complaints. Her nasal cannula will try room air. Patient reports poor sleep but otherwise no new complaints. Review of Systems: denies headache/fever/chills/nausea/vomiting/chest or abdominal pain/diarrhea. Otherwise see above. Constitutional Vitals: Vital Signs Temp Pulse Resp BP Pulse Ox 96.8 F L 71 20 110/69 95 03/01/21 06:47 03/01/21 06:47 03/01/21 06:47 03/01/21 06:47 03/01/21 06:47 Period Temp Pulse Resp BP Sys/Garcia Pulse Ox Last 24 Hr 96.5 F-98 F 71-74 16-20 110-150/62-78 90-95 Intake and Output 02/28/21 03/01/21 03/01/21 21:59 05:59 13:59 Intake Total 970 240 Balance 970 240 Weight 72.263 kg Intake & Output: Intake & Output 02/28/21 03/01/21 03/01/21 21:59 05:59 13:59 Intake Total 970 240 Balance 970 240 Weight 72.263 kg Intake: IV 250 Veklury 100 mg In Sodium 250 Chloride 0.9% 250 ml @ 500 mls/ hr IV Q24H [facility] Rx#:[id number] Oral 720 240 Other: Meal Lunch Percent of Meal Consumed 100% # Voids 1 1 Exam: General: Alert, Awake, No acute Distress Eyes/N/T: EOMI, Head/Neck: neck supple, CV: RRR paced, No murmurs, Pulm: Mild rhonchi b/l, no wheezing Abd: soft, nontender, +BS x4 Ext: no clubbing/cyanosis/edema Neuro: Alert, no focal deficits, moves all extremities, Skin: warm/dry OBJ DATA Labs CBC & Chem 7: 02/28/21 05:45 03/01/21 05:28 Labs: Abnormal Lab Results 03/01/21 02/28/21 02/28/21 05:28 05:45 05:45 Hgb 11.9 L MCHC 30.7 L Neut % (Auto) 23.5 L Lymph % (Auto) 72.4 H Absolute Neutrophils 1.41 L PT D-Dimer BUN 24 H Glucose 114 H 165 H Hemoglobin A1c Calcium 8.5 L AST 35 H Lactate Dehydrogenase 235 H 234 H C-Reactive Protein Total Protein 5.6 L 5.8 L Globulin 2.1 L 2.1 L Triglycerides 248 H 243 H Procalcitonin 02/27/21 02/27/21 02/27/21 17:54 17:54 17:54 Hgb MCHC Neut % (Auto) Lymph % (Auto) Absolute Neutrophils PT D-Dimer BUN Glucose Hemoglobin A1c 6.2 H Calcium AST Lactate Dehydrogenase C-Reactive Protein 4.20 H Total Protein Globulin Triglycerides Procalcitonin 0.10 H 02/27/21 02/27/21 02/27/21 17:54 17:54 17:54 Hgb MCHC Neut % (Auto) Lymph % (Auto) Absolute Neutrophils PT 14.6 H D-Dimer 1.30 H BUN Glucose 117 H Hemoglobin A1c Calcium AST 42 H Lactate Dehydrogenase C-Reactive Protein Total Protein Globulin Triglycerides Procalcitonin 02/27/21 17:54 Hgb MCHC Neut % (Auto) Lymph % (Auto) 53.8 H Absolute Neutrophils PT D-Dimer BUN Glucose Hemoglobin A1c Calcium AST Lactate Dehydrogenase C-Reactive Protein Total Protein Globulin Triglycerides Procalcitonin Meds: Medications Acetaminophen (Acetaminophen 325 Mg Tablet) 650 mg PO Q6HP PRN PRN Reason: PAIN/FEVER > 101 Last Admin: 02/28/21 08:52 Dose: 650 mg Documented by: Albuterol/Ipratropium (Ipratropium/Albuterol 3 Ml Ampul.Neb) 3 ml NEB Q4HP PRN PRN Reason: Shortness Of Breath Alprazolam (Alprazolam 0.5 Mg Tablet) 0.25 - 0.5 mg PO TIDP PRN PRN Reason: anxiety Last Admin: 02/28/21 21:48 Dose: 0.5 mg Documented by: Apixaban (Apixaban 5 Mg Tablet) 5 mg PO BID [facility] Last Admin: 02/28/21 21:47 Dose: 5 mg Documented by: Dexamethasone (Dexamethasone 4 Mg Tablet) 6 mg PO DAILY [facility] Last Admin: 02/28/21 08:19 Dose: 6 mg Documented by: Furosemide (Furosemide 20 Mg Tablet) [facility] [place] Last Admin: 02/28/21 08:23 Dose: 20 mg Documented by: Guaifenesin/Codeine Phosphate (Guaifenesin/Codeine 10 Ml Udc) 5 ml PO Q6HP PRN PRN Reason: Cough Potassium Chloride 40 meq/ (Dextrose) 520 mls @ 130 mls/hr IV UD PRN PRN Reason: Potassium < 3 Magnesium Sulfate (Magnesium Sulfate) 2 gm in 50 mls @ 50 mls/hr IV UD PRN PRN Reason: Magnesium </= 1.6 REMDESIVIR 100 mg/ Sodium (Chloride) 250 mls @ 500 mls/hr IV Q24H [facility] Stop: 03/03/21 16:29 Last Infusion: 02/28/21 16:51 Dose: Infused Documented by: Levothyroxine Sodium (Levothyroxine Sodium 112 Mcg Tablet) 112 mcg PO [facility] Last Admin: 03/01/21 06:54 Dose: 112 mcg Documented by: Levothyroxine Sodium (Levothyroxine 25 Mcg Tablet) [facility] Last Admin: 03/01/21 06:54 Dose: 25 mcg Documented by: Metformin HCl (Metformin 500 Mg Tablet) 500 mg PO [facility] Last Admin: 02/28/21 08:22 Dose: 500 mg Documented by: Metoclopramide HCl (Metoclopramide 10 Mg/2 Ml Vial) 10 mg IV Q6HP PRN PRN Reason: Nausea And Vomiting Metoprolol Succinate (Metoprolol Succinate 50 Mg Tab.Xl.24h) 50 mg PO QDAY [facility] Last Admin: 02/28/21 08:22 Dose: 50 mg Documented by: Metoprolol Tartrate (Metoprolol Tartrate 5 Mg/5 Ml Vial) 5 mg IV Q2HP PRN PRN Reason: Tachyarrhythmias HR>110 Omeprazole (Omeprazole 20 Mg Capsule) 40 mg PO ACB [facility] Last Admin: 03/01/21 06:54 Dose: 40 mg Documented by: Ondansetron HCl (Ondansetron 4 Mg/2 Ml Vial) 4 mg IV Q4HP PRN PRN Reason: Nausea And Vomiting Polyethylene Glycol (Polyethylene Glycol 3350 17 Gm Packet) 17 gm PO DAILYP PRN PRN Reason: Constipation Potassium Chloride (Potassium Chloride 20 Meq Tablet) 40 meq PO UD PRN PRN Reason: Potssium is 3-3.5 Potassium Chloride (Potassium Chloride 20 Meq Tablet) 40 meq PO UD PRN PRN Reason: Potassium < 3 Senna (Sennosides 1 Tablet) 2 tab PO DAILYP PRN PRN Reason: Constipation Sodium Chloride (0.9 % Sodium Chloride 10 Ml Syringe) 10 ml IV Q8 [facility] Last Admin: 03/01/21 04:09 Dose: 10 ml Documented by: Zinc Sulfate (Zinc Sulfate 50 Mg Capsule) 50 mg PO MoWeFr@0900 [facility] A/P Narrative A/P Narrative: A: *Covid PNA: *Acute hypoxic respiratory failure: -on 1L NC *COPD(not on home O2): *Afib/flutter: On Eliquis/BB *HTN/HLD: *Hypothyroidism: *Depression/anxiety: *GERD: *DM: A1c 6.2 * P: -Rem/Dexa -IS/Acapella, prn nebs -O2 supp, wean -Prone positioning -cont metformin -ppx: Home Eliquis/home PPI Full code Time Spent With Patient Time: Total time spent is greater than 50% in coordination of care (as documented) at patient's floor/unit and/or counseling patient: QUALITY VTE Deep Vein Thrombosis/Pulmonary Embolism Present on Admission: No
[2021-03-01] MEDS: ALPRAZolam 0.5 MG TABLET PO PRN ×3 (07:57→20:36)
[2021-03-01] MEDS: DEXAMETHASONE 4 MG TABLET PO SCH (07:57)
[2021-03-01] MEDS: metFORMIN 500 MG TABLET PO SCH (07:57)
[2021-03-01] MEDS: APIXABAN 5 MG TABLET PO SCH ×2 (07:57→20:27)
[2021-03-01] MEDS: ZINC SULFATE 50 MG CAPSULE PO SCH (07:57)
[2021-03-01] MEDS: METOPROLOL SUCCINATE 50 MG TAB.XL.24H PO SCH (07:57)
[2021-03-01] MEDS: FUROSEMIDE 20 MG TABLET PO SCH (07:57)
--- NOTE | 2021-03-01 10:36 | Discharge Summary ---
Discharge Provider Provider Patient information: Note initiated : 03/01/21 at 10:34 am Service Date, if different from initiated Date: [] Patient: Vianca Lancaster 85 y/o F admitted on 02/27/21 for SOB, cough, headache, weakness. Chief Complaint: [] Date of admission: 02/27/21 22:01 Primary care physician: BE Fairchild Consults: 02/27/21 Consult to Physician [CONS] Stat Comment: Consulting Provider: Dante Ramos Reason For Exam: Physician to Consult Discharge Meds Discharge Medications Home Medications multivitamin 1 tab PO QAM 11/04/17 [History Confirmed 02/27/21 Last Taken 02/27/21 09:00] apixaban 5 mg tablet 5 mg PO BID 08/13/19 [History Confirmed 02/27/21 Last Taken 02/27/21 09:00] cholecalciferol (vitamin D3) 125 mcg (5,000 unit) disintegrating tablet 5,000 unit PO QDAY tab 08/13/19 [History Confirmed 02/27/21 Last Taken 02/27/21 09:00] ferrous gluconate 300 mg (35 mg iron) tablet 300 mg PO QDAY 08/13/19 [History Confirmed 02/27/21 Last Taken 02/27/21 09:00] magnesium oxide 400 mg PO TID tab 08/13/19 [History Confirmed 02/27/21 Last Taken 02/27/21 12:00] acetaminophen 650 mg tablet,extended release 1,300 mg PO BID tab 04/17/20 [History Confirmed 02/27/21 Last Taken 02/27/21 09:00] ascorbate calcium (vitamin C) 500 mg tablet 500 mg PO QDAY tab 04/17/20 [History Confirmed 02/27/21 Last Taken 02/27/21 09:00] lactobacillus combination no.8 3 billion cell capsule 3,000 mmu cells PO QDAY 04/17/20 [History Confirmed 02/28/21 Last Taken Unknown] preservision 1 dose PO BID 04/17/20 [History Confirmed 02/28/21 Last Taken Unknown] vitamin B complex 1 tab PO QDAY 04/17/20 [History Confirmed 02/28/21 Last Taken 02/27/21 09:00] zinc 50 mg tablet 50 mg PO .MWF tab 04/17/20 [History Confirmed 02/28/21 Last Taken 02/27/21 09:00] furosemide 20 mg tablet 20 mg PO QAM #90 tab 09/24/20 [Rx Confirmed 02/27/21 Last Taken 02/27/21 09:00] levothyroxine 137 mcg tablet 137 mcg PO QDAY #90 tab 09/24/20 [Rx Confirmed 02/27/21 Last Taken 02/27/21 09:00] metformin 500 mg tablet 500 mg PO QDAY #90 tab 09/24/20 [Rx Confirmed 02/27/21 Last Taken 02/27/21 09:00] metoprolol succinate 50 mg tablet,extended release 24 hr 50 mg PO QDAY #90 tab 09/24/20 [Rx Confirmed 02/27/21 Last Taken 02/27/21 09:00] potassium chloride 20 mEq tablet,extended release See Rx Instructions .ROUTE .COMPLEX #90 tablet 09/24/20 [Rx Confirmed 02/28/21 Last Taken 02/27/21 09:00] alprazolam 0.5 mg tablet 0.25 - 0.5 mg PO TID PRN #180 tab 11/26/20 [Rx Confirmed 02/27/21 Last Taken 02/26/21] omeprazole 40 mg capsule,delayed release 40 mg PO QDAY #30 cap 01/10/21 [Rx Confirmed 02/28/21 Last Taken 02/27/21 09:00] sucralfate 1 gram tablet 1 g PO QACHS #40 tab 01/10/21 [Rx Confirmed 02/28/21 Last Taken Unknown] Coditussin AC 5 ml PO Q6H PRN #473 ml 02/25/21 [Rx Confirmed 02/27/21 Last Taken 02/27/21 23:58] albuterol sulfate 2 puff INHALATION Q6H PRN #8.5 g 02/25/21 [Rx Confirmed 02/27/21 Last Taken 02/27/21] dexamethasone 6 mg PO QDAY #1 tab 03/01/21 [Rx Last Taken Unknown] COURSE Hospital Course Hospital course: Interval history: History of present illness: Ms. Lancaster is a 85 year old F The ED with shortness of breath cough. Has chills but denies fever. She says she has not been feeling ill since the very end of January. She came into the ED several days ago and was diagnosed with Covid but was otherwise doing well and was let go home, she says she felt better the next morning but then the evening she started feeling worse again and presents again today. Cough is productive of brown sputum. She does have some pleuritic chest pain as well. She has diarrhea which she has on occasion normally. She did get the modern vaccine in October. 02/28 Feeling little better. Occasional cough shortness of breath improving. No other complaints. 03/01 No overnight or new complaints. Her nasal cannula will try room air. Patient reports poor sleep but otherwise no new complaints. A: *Covid PNA: *Acute hypoxic respiratory failure: *COPD(not on home O2): *Afib/flutter: On Eliquis/BB *HTN/HLD: *Hypothyroidism: *Depression/anxiety: *GERD: *DM: A1c 6.2 Discharge diagnosis: Covid pneumonia acute hypoxic respiratory failure Secondary discharge diagnosis: COPD A. fib flutter hypertension epilepsy and hypothyroidism depression anxiety GERD diabetes Time Spent with Patient Time attestation: Total time spent providing and/or coordinating discharge services: Time spent: Greater than 30 minutes EXAM Constitutional Vitals: Temp Pulse Resp BP Pulse Ox 96.8 F L 71 20 110/69 95 03/01/21 06:47 03/01/21 06:47 03/01/21 07:38 03/01/21 06:47 03/01/21 06:47 Discharge Data Data Completed and Pending Labs on day of discharge: Labs from last 24 hours 03/01/21 05:28 Sodium 135 Potassium 3.7 Chloride 101 Carbon Dioxide 23 Anion Gap 11.0 BUN 24 H Creatinine 0.8 GFR Calculation 68 Glucose 114 H Uric Acid 5.7 Calcium 8.5 L Phosphorus 2.5 Magnesium 1.7 Total Bilirubin 0.5 Direct Bilirubin 0.2 GGT 34 AST 31 ALT 18 Alkaline Phosphatase 69 Lactate Dehydrogenase 235 H Total Protein 5.6 L Albumin 3.5 Globulin 2.1 L Albumin/Globulin Ratio 1.7 Triglycerides 248 H Discharge Plan Patient/Caregiver Discharge Instructions Activity: increase activity as tolerated Diet: Consistent Carbohydrate Prescriptions: New dexamethasone 6 mg tablet 6 mg PO QDAY Qty: 1 RF: 0 Continued Adult Probiotic 3 billion cell capsule 3,000 mmu cells PO QDAY RF: 0 preservision drops 1 dose PO BID RF: 0 vitamin B complex [B Complex-Vitamin B12] Tablet 1 tab PO QDAY RF: 0 ascorbate calcium (vitamin C) 500 mg tablet 500 mg PO QDAY RF: 0 acetaminophen [Pain Relief (acetaminophen)] 650 mg tablet extended release 1,300 mg PO BID RF: 0 zinc 50 mg tablet 50 mg PO .MWF RF: 0 alprazolam 0.5 mg tablet 0.25 - 0.5 mg PO TID PRN (Reason: anxiety) Qty: 180 RF: 4 multivitamin tablet 1 tab PO QAM RF: 0 ferrous gluconate 300 mg (35 mg iron) tablet 300 mg PO QDAY RF: 0 Eliquis 5 mg tablet 5 mg PO BID RF: 0 magnesium oxide 400 mg magnesium tablet 400 mg PO TID RF: 0 cholecalciferol (vitamin D3) 5,000 unit tablet,disintegrating 5,000 unit PO QDAY RF: 0 omeprazole 40 mg capsule,delayed release(DR/EC) 40 mg PO QDAY Qty: 30 RF: 3 sucralfate [Carafate] 1 gram tablet 1 g PO QACHS Qty: 40 RF: 1 levothyroxine 137 mcg tablet 137 mcg PO QDAY Qty: 90 RF: 4 metformin 500 mg tablet 500 mg PO QDAY Qty: 90 RF: 4 potassium chloride 20 mEq tablet extended release See Rx Instructions .ROUTE .COMPLEX Qty: 90 RF: 4 metoprolol succinate 50 mg tablet extended release 24 hr 50 mg PO QDAY Qty: 90 RF: 4 furosemide 20 mg tablet 20 mg PO QAM Qty: 90 RF: 4 albuterol sulfate 90 mcg/actuation HFA aerosol inhaler 2 puff inhalation Q6H PRN (Reason: shortness of breath or wheezing) Qty: 8.5 RF: 0 Coditussin AC 10-200 mg/5 mL liquid 5 ml PO Q6H PRN (Reason: cough) Qty: 473 RF: 0 Follow Up Plan Follow up with: Kirstin Oakes ARNP [Primary Care Provider] - Patient Disposition: Home Health Service Prognosis: Fair Overall status at discharge: patient is progressing back to baseline QUALITY VTE Deep Vein Thrombosis/Pulmonary Embolism Present on Admission: No
[2021-03-01] MEDS ORDERED: LOPERAMIDE 2 MG CAPSULE PO PRN (14:28)
[2021-03-01] MEDS: REMDESIVIR 100 MG in 0.9 % SODIUM CHLORIDE 250 ML IV SCH (15:59)
[2021-03-01] MEDS: MELATONIN 3 MG TABLET PO SCH (20:26)
[2021-03-01] MEDS: diphenhydrAMINE 25 MG CAPSULE PO SCH (20:26)
[2021-03-02] MEDS: 0.9 % SODIUM CHLORIDE 10 ML SYRINGE IV SCH ×3 (04:01→21:48)
[2021-03-02] MEDS: LEVOTHYROXINE 25 MCG TABLET PO SCH (07:19)
[2021-03-02] MEDS: metFORMIN 500 MG TABLET PO SCH (07:19)
[2021-03-02] MEDS: OMEPRAZOLE 20 MG CAPSULE PO SCH (07:19)
[2021-03-02] MEDS: LEVOTHYROXINE SODIUM 112 MCG TABLET PO SCH (07:19)
[2021-03-02] MEDS: ALPRAZolam 0.5 MG TABLET PO PRN ×2 (07:19→21:47)
[2021-03-02] MEDS: METOPROLOL SUCCINATE 50 MG TAB.XL.24H PO SCH (09:10)
[2021-03-02] MEDS: APIXABAN 5 MG TABLET PO SCH ×2 (09:10→21:47)
[2021-03-02] MEDS: DEXAMETHASONE 4 MG TABLET PO SCH (09:11)
--- NOTE | 2021-03-02 09:37 | Internal Med Progress Note ---
SUBJECTIVE Subjective Patient information: Note initiated : 03/02/21 at 9:36 am Service Date, if different from initiated Date: [] Patient: Vianca Lancaster 85 y/o F admitted on 02/27/21 for SOB, cough, headache, weakness. Chief Complaint: [] Interval history: History of present illness: Ms. Lancaster is a 85 year old F The ED with shortness of breath cough. Has chills but denies fever. She says she has not been feeling ill since the very end of January. She came into the ED several days ago and was diagnosed with Covid but was otherwise doing well and was let go home, she says she felt better the next morning but then the evening she started feeling worse again and presents again today. Cough is productive of brown sputum. She does have some pleuritic chest pain as well. She has diarrhea which she has on occasion normally. She did get the modern vaccine in October. 02/28 Feeling little better. Occasional cough shortness of breath improving. No other complaints. 03/01 No overnight or new complaints. Her nasal cannula will try room air. Patient reports poor sleep but otherwise no new complaints. 03/02 Patient has occasional cough. Some shortness of breath. But sats 95-96% on room air. Patient feels unsafe to be home alone. PT unable to work with patient given Covid status, patient has been up to bathroom per nurse. practice managers to work on rehab facilities. Review of Systems: denies headache/fever/chills/nausea/vomiting/chest or abdominal pain/diarrhea. Otherwise see above. Constitutional Vitals: Vital Signs Temp Pulse Resp BP Pulse Ox 98.4 F 76 18 152/84 94 03/02/21 07:07 03/02/21 04:03 03/02/21 07:37 03/02/21 07:07 03/02/21 07:07 Period Temp Pulse Resp BP Sys/Garcia Pulse Ox Last 24 Hr 97 F-98.4 F 67-76 16-20 105-152/67-90 92-95 Intake and Output 03/01/21 03/02/21 03/02/21 21:59 05:59 13:59 Intake Total 250 480 Balance 250 480 Weight 72.348 kg Intake & Output: Intake & Output 03/01/21 03/02/21 03/02/21 21:59 05:59 13:59 Intake Total 250 480 Balance 250 480 Weight 72.348 kg Intake: IV 250 Veklury 100 mg In Sodium 250 Chloride 0.9% 250 ml @ 500 mls/ hr IV Q24H [facility] Rx#:[id number] Oral 0 480 Other: Urine Appearance Clear Urine Color Straw Urine Odor Normal Stool Size Moderate Stool Color Brown Stool Consistency Soft Loose # Voids 2 Exam: General: Alert, Awake, No acute Distress Eyes/N/T: EOMI, Head/Neck: neck supple, CV: RRR paced, No murmurs, Pulm: Mild rhonchi b/l, no wheezing Abd: soft, nontender, +BS x4 Ext: no clubbing/cyanosis/edema Neuro: Alert, no focal deficits, moves all extremities, Skin: warm/dry OBJ DATA Labs CBC & Chem 7: 02/28/21 05:45 03/01/21 05:28 Labs: Abnormal Lab Results 03/01/21 02/28/21 02/28/21 05:28 05:45 05:45 Hgb 11.9 L MCHC 30.7 L Neut % (Auto) 23.5 L Lymph % (Auto) 72.4 H Absolute Neutrophils 1.41 L PT D-Dimer BUN 24 H Glucose 114 H 165 H Hemoglobin A1c Calcium 8.5 L AST 35 H Lactate Dehydrogenase 235 H 234 H C-Reactive Protein Total Protein 5.6 L 5.8 L Globulin 2.1 L 2.1 L Triglycerides 248 H 243 H Procalcitonin 02/27/21 02/27/21 02/27/21 17:54 17:54 17:54 Hgb MCHC Neut % (Auto) Lymph % (Auto) Absolute Neutrophils PT D-Dimer BUN Glucose Hemoglobin A1c 6.2 H Calcium AST Lactate Dehydrogenase C-Reactive Protein 4.20 H Total Protein Globulin Triglycerides Procalcitonin 0.10 H 02/27/21 02/27/21 02/27/21 17:54 17:54 17:54 Hgb MCHC Neut % (Auto) Lymph % (Auto) Absolute Neutrophils PT 14.6 H D-Dimer 1.30 H BUN Glucose 117 H Hemoglobin A1c Calcium AST 42 H Lactate Dehydrogenase C-Reactive Protein Total Protein Globulin Triglycerides Procalcitonin 02/27/21 17:54 Hgb MCHC Neut % (Auto) Lymph % (Auto) 53.8 H Absolute Neutrophils PT D-Dimer BUN Glucose Hemoglobin A1c Calcium AST Lactate Dehydrogenase C-Reactive Protein Total Protein Globulin Triglycerides Procalcitonin Meds: Medications Acetaminophen (Acetaminophen 325 Mg Tablet) 650 mg PO Q6HP PRN PRN Reason: PAIN/FEVER > 101 Last Admin: 02/28/21 08:52 Dose: 650 mg Documented by: Albuterol/Ipratropium (Ipratropium/Albuterol 3 Ml Ampul.Neb) 3 ml NEB Q4HP PRN PRN Reason: Shortness Of Breath Alprazolam (Alprazolam 0.5 Mg Tablet) 0.25 - 0.5 mg PO TIDP PRN PRN Reason: anxiety Last Admin: 03/02/21 07:19 Dose: 0.5 mg Documented by: Apixaban (Apixaban 5 Mg Tablet) 5 mg PO BID [facility] Last Admin: 03/02/21 09:10 Dose: 5 mg Documented by: Dexamethasone (Dexamethasone 4 Mg Tablet) 6 mg PO DAILY [facility] Last Admin: 03/02/21 09:11 Dose: 6 mg Documented by: Diphenhydramine HCl (Diphenhydramine 25 Mg Capsule) 25 mg PO HS [facility] Last Admin: 03/01/21 20:26 Dose: 25 mg Documented by: Furosemide (Furosemide 20 Mg Tablet) 20 mg PO QAM [facility] Guaifenesin/Codeine Phosphate (Guaifenesin/Codeine 10 Ml Udc) 5 ml PO Q6HP PRN PRN Reason: Cough Potassium Chloride 40 meq/ (Dextrose) 520 mls @ 130 mls/hr IV UD PRN PRN Reason: Potassium < 3 Magnesium Sulfate (Magnesium Sulfate) 2 gm in 50 mls @ 50 mls/hr IV UD PRN PRN Reason: Magnesium </= 1.6 REMDESIVIR 100 mg/ Sodium (Chloride) 250 mls @ 500 mls/hr IV Q24H [facility] Stop: 03/03/21 16:29 Last Infusion: 03/01/21 16:30 Dose: Infused Documented by: Levothyroxine Sodium (Levothyroxine Sodium 112 Mcg Tablet) 112 mcg PO QAMAC [facility] Last Admin: 03/02/21 07:19 Dose: 112 mcg Documented by: Levothyroxine Sodium (Levothyroxine 25 Mcg Tablet) 25 mcg PO QAMAC [facility] Last Admin: 03/02/21 07:19 Dose: 25 mcg Documented by: Loperamide HCl (Loperamide 2 Mg Capsule) 2 mg PO PRN PRN PRN Reason: Diarrhea Last Admin: 03/01/21 14:38 Dose: 2 mg Documented by: Melatonin (Melatonin 3 Mg Tablet) 3 mg PO QHS [facility] Last Admin: 03/01/21 20:26 Dose: 3 mg Documented by: Metformin HCl (Metformin 500 Mg Tablet) 500 mg PO QAC [facility] Last Admin: 03/02/21 07:19 Dose: 500 mg Documented by: Metoclopramide HCl (Metoclopramide 10 Mg/2 Ml Vial) 10 mg IV Q6HP PRN PRN Reason: Nausea And Vomiting Metoprolol Succinate (Metoprolol Succinate 50 Mg Tab.Xl.24h) 50 mg PO QDAY [facility] Last Admin: 03/02/21 09:10 Dose: 50 mg Documented by: Metoprolol Tartrate (Metoprolol Tartrate 5 Mg/5 Ml Vial) 5 mg IV Q2HP PRN PRN Reason: Tachyarrhythmias HR>110 Omeprazole (Omeprazole 20 Mg Capsule) 40 mg PO ACB [facility] Last Admin: 03/02/21 07:19 Dose: 40 mg Documented by: Ondansetron HCl (Ondansetron 4 Mg/2 Ml Vial) 4 mg IV Q4HP PRN PRN Reason: Nausea And Vomiting Polyethylene Glycol (Polyethylene Glycol 3350 17 Gm Packet) 17 gm PO DAILYP PRN PRN Reason: Constipation Potassium Chloride (Potassium Chloride 20 Meq Tablet) 40 meq PO UD PRN PRN Reason: Potssium is 3-3.5 Potassium Chloride (Potassium Chloride 20 Meq Tablet) 40 meq PO UD PRN PRN Reason: Potassium < 3 Senna (Sennosides 1 Tablet) 2 tab PO DAILYP PRN PRN Reason: Constipation Sodium Chloride (0.9 % Sodium Chloride 10 Ml Syringe) 10 ml IV Q8 [facility] Last Admin: 03/02/21 04:01 Dose: 10 ml Documented by: Zinc Sulfate (Zinc Sulfate 50 Mg Capsule) 50 mg PO MoWeFr@0900 [facility] Last Admin: 03/01/21 07:57 Dose: 50 mg Documented by: A/P Narrative A/P Narrative: A: *Covid PNA: *Acute hypoxic respiratory failure: -now on RA *COPD(not on home O2): *Afib/flutter: On Eliquis/BB *HTN/HLD: *Hypothyroidism: *Depression/anxiety: *GERD: *DM: A1c 6.2 * P: -Rem/Dexa -IS/Acapella, prn nebs -O2 supp, wean -Prone positioning -cont metformin -CM for placement -ppx: Home Eliquis/home PPI Full code Time Spent With Patient Time: Total time spent is greater than 50% in coordination of care (as documented) at patient's floor/unit and/or counseling patient: QUALITY VTE Deep Vein Thrombosis/Pulmonary Embolism Present on Admission: No
[2021-03-02] MEDS: REMDESIVIR 100 MG in 0.9 % SODIUM CHLORIDE 250 ML IV SCH (15:17)
[2021-03-02] MEDS: MELATONIN 3 MG TABLET PO SCH (21:48)
[2021-03-02] MEDS: diphenhydrAMINE 25 MG CAPSULE PO SCH (21:48)
[2021-03-03] MEDS: 0.9 % SODIUM CHLORIDE 10 ML SYRINGE IV SCH ×3 (04:55→20:45)
[2021-03-03] MEDS: LEVOTHYROXINE 25 MCG TABLET PO SCH (07:54)
[2021-03-03] MEDS: metFORMIN 500 MG TABLET PO SCH (07:54)
[2021-03-03] MEDS: LEVOTHYROXINE SODIUM 112 MCG TABLET PO SCH (07:54)
[2021-03-03] MEDS: ALPRAZolam 0.5 MG TABLET PO PRN ×3 (07:54→20:45)
[2021-03-03] MEDS: OMEPRAZOLE 20 MG CAPSULE PO SCH (07:54)
[2021-03-03] MEDS: METOPROLOL SUCCINATE 50 MG TAB.XL.24H PO SCH (09:37)
[2021-03-03] MEDS: FUROSEMIDE 20 MG TABLET PO SCH (09:37)
[2021-03-03] MEDS: DEXAMETHASONE 4 MG TABLET PO SCH (09:37)
[2021-03-03] MEDS: APIXABAN 5 MG TABLET PO SCH ×2 (09:37→20:45)
--- NOTE | 2021-03-03 12:55 | Internal Med Progress Note ---
SUBJECTIVE Subjective Patient information: Note initiated : 03/03/21 at 12:53 pm Service Date, if different from initiated Date: [] Patient: Vianca Lancaster 85 y/o F admitted on 02/27/21 for SOB, cough, headache, weakness. Chief Complaint: [] Interval history: History of present illness: Ms. Lancaster is a 85 year old F The ED with shortness of breath cough. Has chills but denies fever. She says she has not been feeling ill since the very end of January. She came into the ED several days ago and was diagnosed with Covid but was otherwise doing we ll and was let go home, she says she felt better the next morning but then the evening she started feeling worse again and presents again today. Cough is productive of brown sputum. She does have some pleuritic chest pain as well. She has diarrhea which she has on occasion normally. She did get the modern vaccine in October. 02/28 Feeling little better. Occasional cough shortness of breath improving. No other complaints. 03/01 No overnight or new complaints. Her nasal cannula will try room air. Patient reports poor sleep but otherwise no new complaints. 03/02 Patient has occasional cough. Some shortness of breath. But sats 95-96% on room air. Patient feels unsafe to be home alone. PT unable to work with patient given Covid status, patient has been up to bathroom per nurse. Case man ager to work on rehab facilities. 03/03 The patient feels like she will be able to go home tomorrow, wants to have one more dose of Remdesivir. Does not want to go to SNF. Review of Systems: denies headache/fever/chills/nausea/vomiting/chest or abdominal pain/diarrhea. Otherwise see above. Constitutional Vitals: Vital Signs Temp Pulse Resp BP Pulse Ox 97.6 F 83 16 122/63 90 03/03/21 11:12 03/03/21 11:12 03/03/21 11:12 03/03/21 11:12 03/03/21 11:12 Period Temp Pulse Resp BP Sys/Garcia Pulse Ox Last 24 Hr 97.1 F-98.1 F 71-83 16-20 118-130/63-80 90-95 Intake and Output 07/10/21 07/11/21 07/11/21 21:59 05:59 13:59 Intake Total 670 240 Balance 670 240 Weight 73.113 kg Intake & Output: Intake & Output 03/02/21 03/03/21 03/03/21 21:59 05:59 13:59 Intake Total 670 240 Balance 670 240 Weight 73.113 kg Intake: IV 250 Veklury 100 mg In Sodium 250 Chloride 0.9% 250 ml @ 500 mls/ hr IV Q24H [facility] Rx#:[id number] Oral 420 240 Other: Meal Breakfast Percent of Meal Consumed 75% Feeding Ability Independent Urine Appearance Clear Urine Color Straw Urine Odor Normal # Voids 3 Exam: General: Alert, Awake, No acute Distress Eyes/N/T: EOMI, Head/Neck: neck supple, CV: RRR paced, No murmurs, Pulm: Mild rhonchi b/l, no wheezing Abd: soft, nontender, +BS x4 Ext: no clubbing/cyanosis/edema Neuro: Alert, no focal deficits, moves all extremities, Skin: warm/dry OBJ DATA Labs CBC & Chem 7: 02/28/21 05:45 03/01/21 05:28 Labs: Abnormal Lab Results 03/01/21 05:28 BUN 24 H Glucose 114 H Calcium 8.5 L Lactate Dehydrogenase 235 H Total Protein 5.6 L Globulin 2.1 L Triglycerides 248 H Meds: Medications Acetaminophen (Acetaminophen 325 Mg Tablet) 650 mg PO Q6HP PRN PRN Reason: PAIN/FEVER > 101 Last Admin: 02/28/21 08:52 Dose: 650 mg Documented by: Albuterol/Ipratropium (Ipratropium/Albuterol 3 Ml Ampul.Neb) 3 ml NEB Q4HP PRN PRN Reason: Shortness Of Breath Alprazolam (Alprazolam 0.5 Mg Tablet) 0.25 - 0.5 mg PO TIDP PRN PRN Reason: anxiety Last Admin: 03/03/21 07:54 Dose: 0.5 mg Documented by: Apixaban (Apixaban 5 Mg Tablet) 5 mg PO BID [facility] Last Admin: 03/03/21 09:37 Dose: 5 mg Documented by: Dexamethasone (Dexamethasone 4 Mg Tablet) 6 mg PO DAILY [facility] Last Admin: 03/03/21 09:37 Dose: 6 mg Documented by: Diphenhydramine HCl (Diphenhydramine 25 Mg Capsule) 25 mg PO HS [facility] Last Admin: 03/02/21 21:48 Dose: 25 mg Documented by: Furosemide (Furosemide 20 Mg Tablet) [facility] [place] Last Admin: 03/03/21 09:37 Dose: 20 mg Documented by: Guaifenesin/Codeine Phosphate (Guaifenesin/Codeine 10 Ml Udc) 5 ml PO Q6HP PRN PRN Reason: Cough Potassium Chloride 40 meq/ (Dextrose) 520 mls @ 130 mls/hr IV UD PRN PRN Reason: Potassium < 3 Magnesium Sulfate (Magnesium Sulfate) 2 gm in 50 mls @ 50 mls/hr IV UD PRN PRN Reason: Magnesium </= 1.6 REMDESIVIR 100 mg/ Sodium (Chloride) 250 mls @ 500 mls/hr IV Q24H [facility] Stop: 03/03/21 16:29 Last Infusion: 03/02/21 15:50 Dose: Infused Documented by: Levothyroxine Sodium (Levothyroxine Sodium 112 Mcg Tablet) 112 mcg PO [facility] Last Admin: 03/03/21 07:54 Dose: 112 mcg Documented by: Levothyroxine Sodium (Levothyroxine 25 Mcg Tablet) 25 mcg PO [facility] Last Admin: 03/03/21 07:54 Dose: 25 mcg Documented by: Loperamide HCl (Loperamide 2 Mg Capsule) 2 mg PO PRN PRN PRN Reason: Diarrhea Last Admin: 03/01/21 14:38 Dose: 2 mg Documented by: Melatonin (Melatonin 3 Mg Tablet) 3 mg PO QHS [facility] Last Admin: 03/02/21 21:48 Dose: 3 mg Documented by: Metformin HCl (Metformin 500 Mg Tablet) [facility] Last Admin: 03/03/21 07:54 Dose: 500 mg Documented by: Metoclopramide HCl (Metoclopramide 10 Mg/2 Ml Vial) 10 mg IV Q6HP PRN PRN Reason: Nausea And Vomiting Metoprolol Succinate (Metoprolol Succinate 50 Mg Tab.Xl.24h) 50 mg PO QDAY [facility] Last Admin: 03/03/21 09:37 Dose: 50 mg Documented by: Metoprolol Tartrate (Metoprolol Tartrate 5 Mg/5 Ml Vial) 5 mg IV Q2HP PRN PRN Reason: Tachyarrhythmias HR>110 Omeprazole (Omeprazole 20 Mg Capsule) 40 mg PO ACB [facility] Last Admin: 03/03/21 07:54 Dose: 40 mg Documented by: Ondansetron HCl (Ondansetron 4 Mg/2 Ml Vial) 4 mg IV Q4HP PRN PRN Reason: Nausea And Vomiting Polyethylene Glycol (Polyethylene Glycol 3350 17 Gm Packet) 17 gm PO DAILYP PRN PRN Reason: Constipation Potassium Chloride (Potassium Chloride 20 Meq Tablet) 40 meq PO UD PRN PRN Reason: Potssium is 3-3.5 Potassium Chloride (Potassium Chloride 20 Meq Tablet) 40 meq PO UD PRN PRN Reason: Potassium < 3 Senna (Sennosides 1 Tablet) 2 tab PO DAILYP PRN PRN Reason: Constipation Sodium Chloride (0.9 % Sodium Chloride 10 Ml Syringe) 10 ml IV Q8 [facility] Last Admin: 03/03/21 04:55 Dose: 10 ml Documented by: Zinc Sulfate (Zinc Sulfate 50 Mg Capsule) 50 mg PO MoWeFr@0900 [facility] Last Admin: 03/01/21 07:57 Dose: 50 mg Documented by: A/P Narrative A/P Narrative: A: *Covid PNA: *Acute hypoxic respiratory failure: -now on RA *COPD(not on home O2): *Afib/flutter: On Eliquis/BB *HTN/HLD: *Hypothyroidism: *Depression/anxiety: *GERD: *DM: A1c 6.2 * P: -Rem/Dexa -IS/Acapella, prn nebs -O2 supp, wean -Prone positioning -cont metformin -CM for placement -ppx: Home Eliquis/home PPI -disposition: home tomorrow Full code Time Spent With Patient Time: Total time spent is greater than 50% in coordination of care (as documented) at patient's floor/unit and/or counseling patient: QUALITY VTE Deep Vein Thrombosis/Pulmonary Embolism Present on Admission: No
[2021-03-03] MEDS: REMDESIVIR 100 MG in 0.9 % SODIUM CHLORIDE 250 ML IV SCH (15:30)
[2021-03-03] MEDS: MELATONIN 3 MG TABLET PO SCH (20:45)
[2021-03-03] MEDS: diphenhydrAMINE 25 MG CAPSULE PO SCH (20:45)
[2021-03-04] MEDS: 0.9 % SODIUM CHLORIDE 10 ML SYRINGE IV SCH (04:28)
[2021-03-04] MEDS: METOPROLOL SUCCINATE 50 MG TAB.XL.24H PO SCH (07:32)
[2021-03-04] MEDS: DEXAMETHASONE 4 MG TABLET PO SCH (07:32)
[2021-03-04] MEDS: OMEPRAZOLE 20 MG CAPSULE PO SCH (07:32)
[2021-03-04] MEDS: LEVOTHYROXINE SODIUM 112 MCG TABLET PO SCH (07:32)
[2021-03-04] MEDS: LEVOTHYROXINE 25 MCG TABLET PO SCH (07:32)
[2021-03-04] MEDS: FUROSEMIDE 20 MG TABLET PO SCH (07:33)
[2021-03-04] MEDS: APIXABAN 5 MG TABLET PO SCH (07:33)
[2021-03-04] MEDS: ZINC SULFATE 50 MG CAPSULE PO SCH (07:33)
[2021-03-04] MEDS: metFORMIN 500 MG TABLET PO SCH (07:33)
--- NOTE | 2021-03-04 09:25 | Discharge Summary ---
Discharge Provider Provider Patient information: Note initiated : 03/04/21 at 9:24 am Service Date, if different from initiated Date: [] Patient: Vianca Lancaster 85 y/o F admitted on 02/27/21 for SOB, cough, headache, weakness. Chief Complaint: [] Date of admission: 02/27/21 22:01 Discharge date: 03/04/21 Primary care physician: BE Fairchild Consults: 02/27/21 Consult to Physician [CONS] Stat Comment: Consulting Provider: Dante Ramos Reason For Exam: Physician to Consult Discharge Meds Discharge Medications Home Medications multivitamin 1 tab PO QAM 11/04/17 [History Confirmed 02/27/21 Last Taken 02/27/21 09:00] apixaban 5 mg tablet 5 mg PO BID 08/13/19 [History Confirmed 02/27/21 Last Taken 02/27/21 09:00] cholecalciferol (vitamin D3) 125 mcg (5,000 unit) disintegrating tablet 5,000 unit PO QDAY tab 08/13/19 [History Confirmed 02/27/21 Last Taken 02/27/21 09:00] ferrous gluconate 300 mg (35 mg iron) tablet 300 mg PO QDAY 08/13/19 [History Confirmed 02/27/21 Last Taken 02/27/21 09:00] magnesium oxide 400 mg PO TID tab 08/13/19 [History Confirmed 02/27/21 Last Taken 02/27/21 12:00] acetaminophen 650 mg tablet,extended release 1,300 mg PO BID tab 04/17/20 [History Confirmed 02/27/21 Last Taken 02/27/21 09:00] ascorbate calcium (vitamin C) 500 mg tablet 500 mg PO QDAY tab 04/17/20 [History Confirmed 02/27/21 Last Taken 02/27/21 09:00] lactobacillus combination no.8 3 billion cell capsule 3,000 mmu cells PO QDAY 04/17/20 [History Confirmed 02/28/21 Last Taken Unknown] preservision 1 dose PO BID 04/17/20 [History Confirmed 02/28/21 Last Taken Unknown] vitamin B complex 1 tab PO QDAY 04/17/20 [History Confirmed 02/28/21 Last Taken 02/27/21 09:00] zinc 50 mg tablet 50 mg PO .MWF tab 04/17/20 [History Confirmed 02/28/21 Last Taken 02/27/21 09:00] furosemide 20 mg tablet 20 mg PO QAM #90 tab 09/24/20 [Rx Confirmed 02/27/21 Last Taken 02/27/21 09:00] levothyroxine 137 mcg tablet 137 mcg PO QDAY #90 tab 09/24/20 [Rx Confirmed 02/27/21 Last Taken 02/27/21 09:00] metformin 500 mg tablet 500 mg PO QDAY #90 tab 09/24/20 [Rx Confirmed 02/27/21 Last Taken 02/27/21 09:00] metoprolol succinate 50 mg tablet,extended release 24 hr 50 mg PO QDAY #90 tab 09/24/20 [Rx Confirmed 02/27/21 Last Taken 02/27/21 09:00] potassium chloride 20 mEq tablet,extended release See Rx Instructions .ROUTE .COMPLEX #90 tablet 09/24/20 [Rx Confirmed 02/28/21 Last Taken 02/27/21 09:00] alprazolam 0.5 mg tablet 0.25 - 0.5 mg PO TID PRN #180 tab 11/26/20 [Rx Confirmed 02/27/21 Last Taken 02/26/21] omeprazole 40 mg capsule,delayed release 40 mg PO QDAY #30 cap 01/10/21 [Rx Confirmed 02/28/21 Last Taken 02/27/21 09:00] sucralfate 1 gram tablet 1 g PO QACHS #40 tab 01/10/21 [Rx Confirmed 02/28/21 Last Taken Unknown] Coditussin AC 5 ml PO Q6H PRN #473 ml 02/25/21 [Rx Confirmed 02/27/21 Last Taken 02/27/21 23:58] albuterol sulfate 2 puff INHALATION Q6H PRN #8.5 g 02/25/21 [Rx Confirmed 02/27/21 Last Taken 02/27/21] dexamethasone 6 mg PO DAILY 6 Days #6 tab 03/04/21 [Rx Last Taken Unknown] COURSE Hospital Course Hospital course: Ms. Lancaster is a 85 year old F The ED with shortness of breath cough. Has chills but denies fever. She says she has not been feeling ill since the very end of January. She came into the ED several days ago and was diagnosed with Covid but was otherwise doing well and was let go home, she says she felt better the next morning but then the evening she started feeling worse again and presents again today. Cough is productive of brown sputum. She does have some pleuritic chest pain as well. She has diarrhea which she has on occasion normally. She did get the modern vaccine in October. 02/28 Feeling little better. Occasional cough shortness of breath improving. No other complaints. 03/01 No overnight or new complaints. Her nasal cannula will try room air. Patient reports poor sleep but otherwise no new complaints. 03/02 Patient has occasional cough. Some shortness of breath. But sats 95-96% on room air. Patient feels unsafe to be home alone. PT unable to work with patient given Covid status, patient has been up to bathroom per nurse. 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 03/03 The patient feels like she will be able to go home tomorrow, wants to have one more dose of Remdesivir. 03/04 Discharged to home, complete 10 days of Dexamethasone 6 mg daily. Discharge diagnosis: COVID-19 Time Spent with Patient Time attestation: Total time spent providing and/or coordinating discharge services: EXAM Constitutional Vitals: Temp Pulse Resp BP Pulse Ox 97.7 F 75 18 146/92 94 03/04/21 08:00 03/04/21 08:00 03/04/21 08:00 03/04/21 08:00 03/04/21 08:00 Additional findings Additional findings: Head: Atraumatic, normal inspection. Eyes: normal appearance, no scleral icterus. Neck: full ROM Respiratory: no respiratory distress. Cardiovascular: normal rate and rhythm, S1, S2. GI/Abdominal: soft, nontender, no guarding. Extremities: full range of motion, nontender. Neurological: CN II-XII intact, intact motor, intact sensation. Psychiatric: normal mood. Skin: warm, normal color Discharge Plan Patient/Caregiver Discharge Instructions Activity: increase activity as tolerated Diet: Consistent Carbohydrate Prescriptions: New dexamethasone 4 mg Tablet 6 mg PO DAILY 6 Days Qty: 6 RF: 0 Continued Adult Probiotic 3 billion cell capsule 3,000 mmu cells PO QDAY RF: 0 preservision drops 1 dose PO BID RF: 0 vitamin B complex [B Complex-Vitamin B12] Tablet 1 tab PO QDAY RF: 0 ascorbate calcium (vitamin C) 500 mg tablet 500 mg PO QDAY RF: 0 acetaminophen [Pain Relief (acetaminophen)] 650 mg tablet extended release 1,300 mg PO BID RF: 0 zinc 50 mg tablet 50 mg PO .MWF RF: 0 alprazolam 0.5 mg tablet 0.25 - 0.5 mg PO TID PRN (Reason: anxiety) Qty: 180 RF: 4 multivitamin tablet 1 tab PO QAM RF: 0 ferrous gluconate 300 mg (35 mg iron) tablet 300 mg PO QDAY RF: 0 Eliquis 5 mg tablet 5 mg PO BID RF: 0 magnesium oxide 400 mg magnesium tablet 400 mg PO TID RF: 0 cholecalciferol (vitamin D3) 5,000 unit tablet,disintegrating 5,000 unit PO QDAY RF: 0 omeprazole 40 mg capsule,delayed release(DR/EC) 40 mg PO QDAY Qty: 30 RF: 3 sucralfate [Carafate] 1 gram tablet 1 g PO QACHS Qty: 40 RF: 1 levothyroxine 137 mcg tablet 137 mcg PO QDAY Qty: 90 RF: 4 metformin 500 mg tablet 500 mg PO QDAY Qty: 90 RF: 4 potassium chloride 20 mEq tablet extended release See Rx Instructions .ROUTE .COMPLEX Qty: 90 RF: 4 metoprolol succinate 50 mg tablet extended release 24 hr 50 mg PO QDAY Qty: 90 RF: 4 furosemide 20 mg tablet 20 mg PO QAM Qty: 90 RF: 4 albuterol sulfate 90 mcg/actuation HFA aerosol inhaler 2 puff inhalation Q6H PRN (Reason: shortness of breath or wheezing) Qty: 8.5 RF: 0 Coditussin AC 10-200 mg/5 mL liquid 5 ml PO Q6H PRN (Reason: cough) Qty: 473 RF: 0 Follow Up Plan Follow up with: Kirstin Oakes ARNP [Primary Care Provider] - Patient Disposition: Home Health Service Prognosis: Fair Overall status at discharge: patient is progressing back to baseline Discharge Orders: Discharge Order (Routine); Ordered 03/04/21 Ordered By: Jorge Luis AWAD VTE Deep Vein Thrombosis/Pulmonary Embolism Present on Admission: No
== END 2021-03-04 12:59 | disposition home health service (06) | DRG 177 ==
LOC: ED 17:23 → MEDSUR 22:01
PROVIDERS: ADMIT Internal Medicine; ATTEND Internal Medicine